=== PATIENT | female | born 1995 | race African-American/Black ===

== ENCOUNTER 2019-08-30 11:26 | Emergency (ER) | payer SELFPAY ==
[~2019-08-30] VITALS: Ht 165.1 cm; Wt 69.5 kg
[2019-08-30 11:31] VITALS: BP 126/74
[2019-08-30 12:39] VITALS: BP 126/74
== END 2019-08-30 11:46 | disposition home or self-care (01) ==
LOC: MED 11:26
DX: S13.9XXA Sprain of joints and ligaments of unspecified parts of neck, initial encounter (principal); M54.6 Pain in thoracic spine; V49.88XA Car occupant (driver) (passenger) injured in other specified transport accidents, initial encounter; Y93.89 Activity, other specified; Y92.488 Other paved roadways as the place of occurrence of the external cause; Y99.8 Other external cause status
CPT/HCPCS: 99282